=== PATIENT | male | born 1975 | race Caucasian/White ===

== ENCOUNTER 2018-03-01 23:05 | Emergency (ER) | payer SELFPAY ==
[2018-03-01 23:30] VITALS: BP 137/91
[2018-03-02] MEDS: BENZONATATE 100 MG CAPSULE PO ONE
--- NOTE | 2018-03-02 00:04 | ED Physician Documentation ---
Upper Respiratory Symptoms - HISTORIAN Historian: patient - HPI Stated Complaint: cough/cold Chief Complaint: Cough/ Upper Respiratory Additional Information: cough prod clealr mucoid x 1 month Onset: days ago (30) Duration: intermittent episodes Context: recent foreign travel. denies: insect bite(s), recent chemotherapy Severity: mild, moderate Associated Symptoms: runny nose, productive cough. denies: fever, chills Worsened by Deep Breath: Yes Further Comments: yes - ROS CONST/EYES: denies: weakness CVS/RESP: none. denies: chest pain, shortness of breath LYMPH: denies: leg swelling, rash, swollen glands GI/: none NEURO/PSYCH: denies: fainting, dizziness, confusion MS/SKIN: denies: joint pain - PAST HX Lung Disease: none PE Risk Factors: none Other History: denies: cancer chemo, cancer radiation tx, cardiac disease Surgeries/Procedures: none Allergies/Adverse Reactions: Allergies Allergy/AdvReac Type Severity Reaction Status Date / Time No Known Drug Allergies Allergy Verified 03/01/18 23:30 Home Medications: Ambulatory Orders Medication Instructions Recorded Buspirone HCl [Buspar] 15 mg PO BID 03/01/18 Codeine Phosphate/Guaifenesin 10 ml PO Q6H PRN #1 liquid 03/01/18 [Robitussin AC] Divalproex Sodium [Divalproex 500 mg PO DAILY 03/01/18 Sodium ER] Hydroxyzine HCl [Atarax] 25 mg PO DAILY 03/01/18 - SOCIAL HX Smoking History: cigarettes, greater than 1 pack/day Alcohol Use: none Drug Use: none - FAMILY HX Family History: no significant history - VITAL SIGNS Vital Signs: Vital Signs Temp Pulse Resp BP Pulse Ox 98.4 F 97 H 18 137/91 97 03/01/18 23:22 03/01/18 23:22 03/01/18 23:22 03/01/18 23:22 03/01/18 23:22 - REVIEWED ASSESSMENTS Nursing Assessment Reviewed: Yes Vitals Reviewed: Yes ED Results Lab/Radiology - Orders Orders: ED Orders Category Date Time Status Benzonatate [Tessalon] Med 03/01/18 23:55 Discontinued 100 mg PO NOW ONE Upper Respiratory Symptoms - EXAM General Appearance: mild distress EENT: eyes nml inspection Neck: normal inspection, supple Respiratory: no resp. distress, breath sounds nml, speaks full sentences. No: no pain on inspiration, respiratory distress Abdomen: non-tender, no distention CVS: reg rate & rhythm, heart sounds normal Skin: color nml, no rash, warm,dry. No: cyanosis, diaphoresis, pallor, signs of IVDA, embolic Extremities: non-tender, normal range of motion Neuro/Psych: oriented x3, neuro intact, mood/affect nml Discharge Clincal Impression: cough uri Prescriptions: Codeine Phosphate/Guaifenesin [Robitussin AC] 10 ml PO Q6H PRN #1 liquid PRN Reason: Cold Symptons Referrals: Primary Doctor,No [Primary Care Provider] - 2 Days Comments: ordered robitussin ac Condition: Good Disposition: 01 HOME, SELF-CARE Decision to Admit: NO Decision Time: 00:07
== END 2018-03-02 00:03 | disposition home or self-care (01) ==
LOC: ED 23:05
DX: J06.9 Acute upper respiratory infection, unspecified (principal); R05 Cough
CPT/HCPCS: 99283; A9270-GY

== ENCOUNTER 2018-05-02 15:20 | Outpatient (CLI) | payer OTHER ==
[2018-05-02 16:25] LABS: eGFR (African) > 60; eGFR (Non-African) > 60
== END 2018-05-02 15:30 ==
LOC: LAB 15:20
PROVIDERS: ATTEND Family Medicine
DX: L29.9 Pruritus, unspecified (principal)
CPT/HCPCS: 36415; 80053

== ENCOUNTER 2018-05-16 10:19 | Emergency (ER) | payer OTHER ==
[2018-05-16 10:32] VITALS: BP 116/82
--- NOTE | 2018-05-16 10:50 | ED Physician Documentation ---
Skin Rash - HISTORIAN Historian: patient - HPI Stated Complaint: ITCHING Chief Complaint: Skin Rash Onset: days ago (2) Timing: worse Duration: worse Location: RUE, LUE, RLE, LLE, other (groin) Quality: itchy, painful Context: Food Exposure: none Context: Other Exposure: poison morro (possible), poison oak (possible). denies: bee sting, wasp sting, ant bite, spider bite, infectious illness, soap, detergent, other Further Comments: yes (42 year old male patient presents with complaint of rash on bilateral arms, bilateral feet and groin. Patient states he rash started 2 days, has become progressively worse. Has used mustard, hydrocortisone cream and vinegar on the rash with not improvment.) - ROS CONST: none CVS/RESP: none EYES/ENT: none GI/: none MS/SKIN/LYMPH: rash NEURO/PSYCH: none - PAST HX Past History: hypertension, other (asthma) Allergies/Adverse Reactions: Allergies Allergy/AdvReac Type Severity Reaction Status Date / Time No Known Drug Allergies Allergy Verified 05/16/18 10:33 Home Medications: Ambulatory Orders Medication Instructions Recorded Cephalexin [Keflex] 500 mg PO QID #28 capsule 05/16/18 Valacyclovir HCl [Valacyclovir] 1,000 mg PO D 05/16/18 - SOCIAL HX Smoking History: cigarettes - FAMILY HX Family History: denies: none - VITAL SIGNS Vital Signs: Vital Signs Temp Pulse Resp BP Pulse Ox 96.7 F L 99 H 20 116/82 99 05/16/18 10:54 05/16/18 10:54 05/16/18 10:54 05/16/18 10:54 05/16/18 10:54 - REVIEWED ASSESSMENTS Nursing Assessment Reviewed: Yes Vitals Reviewed: Yes Progress - Progress Progress: Patient denies any new soaps or lotions, denies chemical exposure, denies any new foods. Medicated with depo medrol while in the Er. ED Results Lab/Radiology - Orders Orders: ED Orders Category Date Time Status Loratadine [Claritin] Med 05/16/18 10:47 Discontinued 10 mg PO NOW ONE methylPREDNISolone ACETATE [Depo-Medrol] Med 05/16/18 10:47 Discontinued 80 mg IM NOW ONE Skin Rash Physical Exam - EXAM General Appearance: mild distress Skin: warm,dry, skin rash Location: trunk, extremities (bilateral arms and bilateral feet) Character: asymmetric, macular, fine, urticarial, erythematous. No: vesicular Symptoms: tenderness, swelling (bilateral hands) Extremities: nml ROM, edema EENT: eyes nml inspection, lips nml, gums nml, pharynx nml Respiratory: no resp distress, chest non-tender, breath sounds normal CVS: reg. rate & rhythm, heart sounds nml Abdomen: non-tender, no organomegaly, nml bowel sounds, no distention Neuro/Psych: oriented x3, CN's nml as tested, motor nml, sensation nml, mood/ affect nml Discharge Clincal Impression: Urticaria Prescriptions: Cephalexin [Keflex] 500 mg PO QID #28 capsule Referrals: Primary Doctor,No [Primary Care Provider] - 2 Days Additional Instructions: securities supervisor your prescription and start it today. Continue Benadryl 25-50mg by mouth every 6 hours until symptoms resolve Take either Claritan, Allergra, or Zyrtec daily until symptoms resolve. See your primary doctor or return to the ER if you have increase shortness of breath or difficulty breathing. Hives can be treated at home with the above Benadryl regimen. Condition: Stable Disposition: HOME, SELF-CARE Decision to Admit: NO Decision Time: 10:50
[2018-05-16] MEDS: LORATADINE 10 MG TABLET PO ONE (10:53)
[2018-05-16] MEDS: methylPREDNISolone ACETATE 80 MG/ML VIAL IM ONE (10:53)
== END 2018-05-16 10:54 | disposition home or self-care (01) ==
LOC: ED 10:19
DX: L50.9 Urticaria, unspecified (principal)
CPT/HCPCS: 96372; 99283; J1040

== ENCOUNTER 2018-06-30 21:39 | Emergency (ER) | payer OTHER ==
[2018-06-30] MEDS ORDERED: ONDANSETRON HCL/PF 4 MG/ 2ML VIAL IVP PRN (22:06)
--- NOTE | 2018-06-30 22:10 | ED Physician Documentation ---
GI Bleed - HISTORIAN Historian: patient - HPI Stated Complaint: Diarrhea and vomiting. Chief Complaint: Nausea,Vomiting,Diarrhea Onset: days ago Timing: gradual onset Severity: severe Further Comments: yes (Patient woke up last night with vomiting and diarrhea. Today has had about 4 episodes of vomiting and 15 of diarrhea. Many member of his family and co-workers have similiar symtpoms. Feels light headed when stands. Able to keep fluids down. Tonight ate ribs and beans for dinner. About an hour later had more diarrhea.) - Associated Symptoms Description of Stools: denies: dark stools Abdominal Pain: none - ROS CONST: denies: fever SKIN/LYMPH: denies: leg swelling - PAST HX Past History: other (PTSD and bipolar - no meds at this time) Surgeries/Procedures: none Allergies/Adverse Reactions: Allergies Allergy/AdvReac Type Severity Reaction Status Date / Time No Known Drug Allergies Allergy Verified 06/30/18 22:59 Home Medications: Ambulatory Orders Medication Instructions Recorded NK 06/30/18 - SOCIAL HX Smoking History: greater than 1 pack/day Alcohol Use: none Drug Use: none - FAMILY HX Family History: other (DM) - VITAL SIGNS Vital Signs: Vital Signs Temp Pulse Resp BP Pulse Ox 98.5 F 122 H 18 124/90 96 06/30/18 21:39 06/30/18 21:39 06/30/18 21:39 06/30/18 21:39 06/30/18 21:39 - REVIEWED ASSESSMENTS Nursing Assessment Reviewed: Yes Vitals Reviewed: Yes Progress - Progress Progress: 1 liter of NS + 20 oz of oral gatorade - patient feels much better. Pulse in the 80's. ED Results Lab/Radiology - Lab Results Lab Results: Lab Results 06/30/18 22:08 Sodium 137 mmol/L mmol/L (136-145) Potassium 3.6 mmol/L mmol/L (3.5-5.1) Chloride 109 mmol/L H mmol/L (98-107) Carbon Dioxide 25 mmol/L mmol/L (22-30) BUN 11 mg/dL mg/dL (9-20) Creatinine 0.80 mg/dL mg/dL (0.66-1.25) Estimated Creat Clear 168 Est GFR ( Amer) > 60 (60 - ) Est GFR (Non-Af Amer) > 60 (60 - ) Glucose 118 mg/dL H mg/dL (74-106) Calcium 9.0 mg/dL mg/dL (8.4-10.2) Total Bilirubin 0.2 mg/dL mg/dL (0.2-1.3) AST 34 U/L U/L (15-46) ALT 57 U/L U/L (13-69) Alkaline Phosphatase 64 U/L U/L (38-126) Total Protein 7.5 g/dL g/dL (6.3-8.2) Albumin 4.1 g/dL g/dL (3.5-5.0) - Orders Orders: ED Orders Category Date Time Status Place IV Lock 1T Care 06/30/18 22:[address] IV Lock 1T Care 06/30/18 22:05 Active CBC REF Routine Lab 06/30/18 22:08 Received CMP [CMP] Routine Lab 06/30/18 22:08 Completed 0.9 % Sodium Chloride [Normal Saline] 1,000 ml Med 06/30/18 22:30 Ordered IV Q1 0.9 % Sodium Chloride [Normal Saline] 1,000 ml Med 06/30/18 22:30 Discontinued IV Q10H Ondansetron HCl Rapdis [Zofran Odt] Med 06/30/18 22:16 Discontinued 4 mg PO NOW ONE Ondansetron HCl/Pf [Zofran 4 mg/2 ml] Med 06/30/18 22:06 Discontinued 4 mg IVP Q6H PRN Abdominal Pain Physical Exam - Physical Exam General Appearance: no acute distress, alert EENT: eye inspection normal, ENT inspection normal, dry mucous membranes NECK: normal inspection RESPIRATORY: no resp distress, breath sounds normal CVS: reg rate & rhythm, heart sounds normal ABDOMEN: soft, no organomegaly, normal bowel sounds, no distension, non-tender NEURO: oriented X3 Vital Signs: Vital Signs Temp Pulse Resp BP Pulse Ox 98.5 F 122 H 18 124/90 96 06/30/18 21:39 06/30/18 21:39 06/30/18 21:39 06/30/18 21:39 06/30/18 21:39 Discharge Clincal Impression: Viral gastroenteritis Referrals: Primary Doctor,No [Primary Care Provider] - 2 Days Additional Instructions: BRAT diet x 48 hours. No work tomorrow. Push fluids. Condition: Good Disposition: 01 HOME, SELF-CARE Decision to Admit: NO Decision Time: 23:24
[2018-06-30] MEDS ORDERED: ONDANSETRON HCL 4 MG TAB.RAPDIS PO ONE (22:16)
[2018-06-30] MEDS ORDERED: 0.9 % SODIUM CHLORIDE 1,000 ML IV ONE (22:17)
[2018-06-30 22:23] LABS: eGFR (Non-African) > 60
[2018-06-30] MEDS ORDERED: 0.9 % SODIUM CHLORIDE 1,000 ML IV SCH ×2 (22:30)
[2018-06-30 23:50] VITALS: BP 124/60
== END 2018-06-30 23:25 | disposition home or self-care (01) ==
LOC: ED 21:39
DX: A08.4 Viral intestinal infection, unspecified (principal)
CPT/HCPCS: 80053; 85025; A9270; J7030; 96365; 99283; S1016

== ENCOUNTER 2018-07-18 06:36 | Emergency (ER) | payer OTHER ==
--- NOTE | 2018-07-18 07:04 | ED Physician Documentation ---
General Adult - HPI Stated Complaint: Insect in left ear Chief Complaint: General Adult Onset: hours Timing: still present Severity: moderate Further Comments: yes (Pt is a 43 yo male with c/o a bug in his L ear. He thinks it has been there for about 4 hours. Pt flushed his ear with saline at home.) - ROS CONST: no problems EYES/ENT: other (? foreign body L ear) CVS/RESP: none GI/: none MS/SKIN/LYMPH: none - PAST HX Past History: none Allergies/Adverse Reactions: Allergies Allergy/AdvReac Type Severity Reaction Status Date / Time No Known Drug Allergies Allergy Verified 07/18/18 06:52 Home Medications: Ambulatory Orders Medication Instructions Recorded NK 06/30/18 - SOCIAL HX Smoking History: cigarettes - FAMILY HX Family History: No - VITAL SIGNS Vital Signs: Vital Signs Temp Pulse Resp BP Pulse Ox 98.6 F 92 H 18 120/86 98 07/18/18 06:40 07/18/18 06:40 07/18/18 06:40 07/18/18 06:40 07/18/18 06:40 - REVIEWED ASSESSMENTS Nursing Assessment Reviewed: Yes Vitals Reviewed: Yes Progress - Progress Progress: debrox and flush, no fb found no fb seen General Adult Physical Exam - PHYSICAL EXAM GENERAL APPEARANCE: mild distress EENT: ENT inspection normal, TM's nml NECK: normal inspection, supple RESPIRATORY: no resp distress, chest non-tender CVS: reg rate & rhythm, heart sounds normal BACK: normal inspection SKIN: warm/dry, normal color EXTREMITIES: non-tender, normal range of motion, no evidence of injury NEURO: oriented X3, motor nml, sensation nml Discharge Clincal Impression: c/o fb L ear Referrals: Primary Doctor,No [Primary Care Provider] - Condition: Good Disposition: 01 HOME, SELF-CARE Decision to Admit: NO Decision Time: 07:28
[2018-07-18] MEDS: CARBAMIDE PEROXIDE OTIC SUSP OT ONE (07:16)
[2018-07-18 07:52] VITALS: BP 124/60
== END 2018-07-18 07:35 | disposition home or self-care (01) ==
LOC: ED 06:36
DX: H93.92 Unspecified disorder of left ear (principal)

== ENCOUNTER 2018-08-26 08:17 | Emergency (ER) | payer OTHER ==
--- NOTE | 2018-08-26 08:37 | ED Physician Documentation ---
General Adult - HISTORIAN Historian: patient - HPI Stated Complaint: cough Chief Complaint: General Adult Additional Information: Cough and congestion for 3 weeks. No fever. Had to sleep sitting upright last night to decrease cough frequency. [facility]2 [facility]. Given an unknown IV medication that made his kidneys hurt when he got home. 1 PPD smoker since 8 years old. Took mucinex in the past but none in the last few days. Had whooping cough in 2013. No other modifying factors or associated events. - ROS CONST: denies: fever - PAST HX Past History: other (whooping cough) Allergies/Adverse Reactions: Allergies Allergy/AdvReac Type Severity Reaction Status Date / Time No Known Drug Allergies Allergy Verified 08/26/18 08:31 Home Medications: Ambulatory Orders Medication Instructions Recorded Azithromycin [Zithromax] 250 mg PO DAILY #6 tablet 08/26/18 predniSONE [Deltasone] 20 mg PO QD #7 tablet 08/26/18 - SOCIAL HX Smoking History: cigarettes (1 PPD x 35 years) - FAMILY HX Family History: No (no signif) - VITAL SIGNS Vital Signs: Vital Signs Temp Pulse Resp BP Pulse Ox 97.9 F 86 16 122/82 96 08/26/18 08:27 08/26/18 08:27 08/26/18 08:27 08/26/18 08:27 08/26/18 08:27 - REVIEWED ASSESSMENTS Nursing Assessment Reviewed: Yes Vitals Reviewed: Yes Progress - Progress Progress: Report Submission Date: Aug 26, 2018 8:45:12 AM RIB CHOPPER Patient Study Name: JOEL BOWIE Date: Aug 26, 2018 8:25:21 AM RIB CHOPPER Modality Type: DX Gender: M Description: CHEST : 71 Institution: [facility] Physician: NICOLAS MONCADA - Examination: PA and lateral chest. History: Evaluate lung preciado. Cough x3 weeks, smoker x30 years (Hx) Comparison exam: None provided. Findings: PA and lateral views of the chest demonstrates a normal cardiac and mediastinal silhouette. No focal infiltrate. No blunting of the costophrenic margins. Osseous structures are appropriate for age. Impression: No acute pulmonary process. Electronically signed on Aug 26, 2018 8:45:12 AM RIB CHOPPER by: Marshall Erickson ED Results Lab/Radiology - Orders Orders: ED Orders Category Date Time Status CHEST 2VIEW [RAD] Stat Exams 08/26/18 Ordered General Adult Physical Exam - PHYSICAL EXAM GENERAL APPEARANCE: no distress EENT: eye inspection normal, ENT inspection normal, pharynx normal, other (mild tenderness with palpation facial sinus areas) NECK: normal inspection, supple. No: lymphadenopathy RESPIRATORY: no resp distress, breath sounds normal, other (occasional wet c ough) CVS: reg rate & rhythm, heart sounds normal BACK: normal inspection SKIN: warm/dry, normal color EXTREMITIES: normal range of motion (gait and stance) NEURO: CN's nml as tested, motor nml, sensation nml, cognition normal Discharge Clincal Impression: Sinusitis Qualifiers: Sinusitis location: unspecified location Chronicity: chronic Qualified Code(s): J32.9 - Chronic sinusitis, unspecified Referrals: Primary Doctor,No [Primary Care Provider] - 2 Days Condition: Good Disposition: 01 HOME, SELF-CARE Decision to Admit: NO Decision Time: 08:58
[2018-08-26 08:42] VITALS: BP 122/82
--- NOTE | 2018-08-26 08:47 | Diagnostic Imaging Report ---
NICOLAS MONCADA [facility] [address] [facility] [address] [place] [address]. [id number] Report Submission Date: Aug 26, 2018 8:45:12 AM DRAMATIC TEACHER Patient Study Name: JOEL BOWIE Date: Aug 26, 2018 8:25:21 AM DRAMATIC TEACHER Modality Type: DX Gender: M Description: CHEST : 71 Institution: [facility] Physician: NICOLAS MONCADA Examination: PA and lateral chest. History: Evaluate lung preciado. Cough x3 weeks, smoker x30 years (Hx) Comparison exam: None provided. Findings: PA and lateral views of the chest demonstrates a normal cardiac and mediastinal silhouette. No focal infiltrate. No blunting of the costophrenic margins. Osseous structures are appropriate for age. Impression: No acute pulmonary process. Electronically signed on Aug 26, 2018 8:45:12 AM DRAMATIC TEACHER by: Marshall HERCULES
== END 2018-08-26 09:04 | disposition home or self-care (01) ==
LOC: ED 08:17
DX: J32.9 Chronic sinusitis, unspecified (principal); R05 Cough; F17.200 Nicotine dependence, unspecified, uncomplicated
CPT/HCPCS: 71046; 99283

== ENCOUNTER 2018-09-10 06:50 | Emergency (ER) | payer OTHER ==
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
--- NOTE | 2018-09-10 08:16 | Diagnostic Imaging Report ---
BOSTON LONDON (COLORIST DYER) - ER [facility] [address] [facility] [address] Report Submission Date: Sep 10, 2018 7:38:51 AM FEED INSPECTION SUPERVISOR Patient Study Name: JOEL BOWIE Date: Sep 10, 2018 7:11:26 AM FEED INSPECTION SUPERVISOR Modality Type: DX Gender: M Description: LOWER EXTREMITY : 71 Institution: [facility] Physician: BOSTON LONDON (COLORIST DYER) - ER Examination: Plain film left tibia/fibula History: FALL YESTERDAY, RIGHT LOWER LEG PAIN. (Hx) Comparison exams: None available Findings: 4 views of the right tibia fibula demonstrates normal cortical margins. No evidence for fracture line. Inferior calcaneal spur. No soft tissue abnormality. Impression: No acute osseous abnormality. Electronically signed on Sep 10, 2018 7:38:51 AM FEED INSPECTION SUPERVISOR by: Marshall HERCULES
--- NOTE | 2018-09-10 08:17 | Diagnostic Imaging Report ---
BOSTON LONDON (PUBLIC SAFETY DIRECTOR) - ER [facility] [address] [facility] [address] [place], [place]. [address] Report Submission Date: Sep 10, 2018 7:43:55 AM ELECTRIC MOTOR CONTROLS ASSEMBLER Patient Study Name: JOEL BOWIE Date: Sep 10, 2018 7:14:43 AM ELECTRIC MOTOR CONTROLS ASSEMBLER Modality Type: CT Gender: M Description: CT BRAIN W/O CONTRAST : 71 Institution: [facility] Physician: BOSTON LONDON (LIANE) - ER Examination: CT head without contrast History: FALL YESTERDAY, DIZZINESS AND HEADACHE. (Hx) Comparison exam: None available Technique: Noncontrast head CT protocol. Findings: Ventricles and sulci are appropriate for patient age. Cerebrocerebellar parenchyma demonstrates normal attenuation. No evidence for parenchymal hemorrhage. No evidence for mass or mass effect. No midline shift. No extra axial fluid collections. Significant subcutaneous air anterior to the right maxillary sinus extending from the infraorbital region inferiorly. Cortical disruption involving the anterior/inferior margin of the right maxillary sinus. Partial visualization of the remaining paranasal sinuses, mastoid air cells, orbits, skull and scalp without gross irregularity. Streak artifact from dental hardware. Impression: No acute intra parenchymal process. No hemorrhage. Right anterior soft tissue subcutaneous air/injury. Fracture of the anterior/inferior margin of the right maxillary sinus. Recommend obtaining dedicated CT maxillofacial bone to better evaluate. Electronically signed on Sep 10, 2018 7:43:55 AM ELECTRIC MOTOR CONTROLS ASSEMBLER by: Marshall HERCULES
[2018-09-10 08:24] VITALS: BP 139/90
== END 2018-09-10 08:17 | disposition home or self-care (01) ==
LOC: ED 06:50
DX: S06.0X0A Concussion without loss of consciousness, initial encounter (principal); S02.40CA Maxillary fracture, right side, initial encounter for closed fracture; V68.4XXA Person boarding or alighting a heavy transport vehicle injured in noncollision transport accident, initial encounter; Y93.89 Activity, other specified; Y92.812 Truck as the place of occurrence of the external cause; Y99.0 Civilian activity done for income or pay
CPT/HCPCS: 70450; 73590; 99283; 99284

== ENCOUNTER 2018-10-01 18:59 | Emergency (ER) | payer OTHER ==
[2018-10-01] MEDS ORDERED: IPRATROPIUM/ALBUTEROL SULFATE 3 ML AMPUL.NEB NEB ONE (19:25)
--- NOTE | 2018-10-01 19:54 | ED Physician Documentation ---
Upper Respiratory Symptoms - HISTORIAN Historian: patient - HPI Stated Complaint: shortness of breath Chief Complaint: Upper Respiratory Symptoms Additional Information: Patient presents with a 4 day history of cough, runny nose, shortness of breath. Patient has COPD and still smokes 1/2 pack per day. He denies fever, chills or night sweats. Sputum production is white. Onset: days ago (4) Duration: intermittent episodes Context: denies: recent foreign travel Severity: mild Associated Symptoms: chills, sweating, runny nose, sinus drainage, productive cough (white sputum production). denies: fever - ROS CONST/EYES: denies: weakness - PAST HX Lung Disease: COPD Allergies/Adverse Reactions: Allergies Allergy/AdvReac Type Severity Reaction Status Date / Time No Known Drug Allergies Allergy Verified 10/01/18 19:22 Home Medications: Ambulatory Orders Medication Instructions Recorded Albuterol Sulfate [Proair 1 INH PRN PRN 10/01/18 Respiclick] Azithromycin 250 mg PO DIRECTED #6 tablet 10/01/18 - SOCIAL HX Smoking History: cigarettes, greater than 1 pack/day Alcohol Use: none Drug Use: none - FAMILY HX Family History: none - VITAL SIGNS Vital Signs: Vital Signs Temp Pulse Resp BP Pulse Ox 96.8 F L 104 H 18 139/95 99 10/01/18 19:02 10/01/18 19:02 10/01/18 19:02 10/01/18 19:02 10/01/18 19:02 - REVIEWED ASSESSMENTS Nursing Assessment Reviewed: Yes Vitals Reviewed: Yes ED Results Lab/Radiology - Radiology Radiology Impressions: Chest PA and lateral views Clinical history: Cough Normal heart shadow and mediastinum, lungs are clear without acute infiltrate or pleural effusion. No pneumothorax. Normal bony thorax. Impression: No active pulmonary pathology Electronically signed on Oct 01, 2018 8:28:25 PM INSPECTOR SCREEN PRINTING by: Néstor Jasso - Orders Orders: ED Orders Category Date Time Status CHEST 2VIEW [RAD] Stat Exams 10/01/18 Ordered CBC/PLATELET/DIFF Routine Lab 10/01/18 19:37 Received CMP Routine Lab 10/01/18 19:37 Received Ipratropium/Albuterol Sulfate [Duoneb] Med 10/01/18 19:25 Discontinued 3 ml NEB NOW ONE Upper Respiratory Symptoms - EXAM General Appearance: alert EENT: PERRL Neck: supple Respiratory: no resp. distress, wheezes (scattered wheezing bilaterally) Abdomen: non-tender CVS: reg rate & rhythm, heart sounds normal Skin: warm,dry Extremities: non-tender Neuro/Psych: oriented x3 Discharge Clincal Impression: Upper respiratory infection, acute Prescriptions: Azithromycin 250 mg PO DIRECTED #6 tablet Referrals: Primary Doctor,No [Primary Care Provider] - 2 Days Additional Instructions: 1. Tylenol and/or Ibuprofen as needed for fever or pain. You may take these medications together at the same time for better pain control. 2. Add a daily antihistamine such as Claritin, Zyrtec, Xyxal, Allergra. Avoid taking the D version of these medications as they contain sudafed and will increase your blood pressure 3.Take Mucinex or Robutussin (both contain the same ingredient) to help with mucous thinning allowing you to clear your mucous easier. While taking these medications you must drink at least 64 ounces of water daily. 4.Use a cool mist humidifier with sleep 5.Follow up with PCP within 3 days 6. Return to the ED with fever >102.0, difficulty breathing, chest pain or any new or worsening symptoms Condition: Stable Decision to Admit: NO Date of Decison to Admit: 10/01/18 Decision Time: 20:35
[2018-10-01] MEDS ORDERED: methylPREDNISolone SOD SUCC 125 MG/2 ML VIAL IVP ONE (20:25)
[2018-10-01] MEDS ORDERED: methylPREDNISolone SOD SUCC 125 MG/2 ML VIAL IM ONE (20:37)
[2018-10-01 20:52] VITALS: BP 105/80
--- NOTE | 2018-10-02 05:06 | Diagnostic Imaging Report ---
VERN GRAVES [facility] [address] [facility] [address] [place] [address]. [id number] Report Submission Date: Oct 01, 2018 8:28:25 PM SENIOR COMPENSATION CONSULTANT Patient Study Name: JOEL BOWIE Date: Oct 01, 2018 8:02:21 PM SENIOR COMPENSATION CONSULTANT Modality Type: DX Gender: M Description: CHEST : 71 Institution: [facility] Physician: VERN GRAVES Chest PA and lateral views Clinical history: Cough Normal heart shadow and mediastinum, lungs are clear without acute infiltrate or pleural effusion. No pneumothorax. Normal bony thorax. Impression: No active pulmonary pathology Electronically signed on Oct 01, 2018 8:28:25 PM SENIOR COMPENSATION CONSULTANT by: Néstor HERCULES
[2018-10-02 06:57] LABS: MEAN CORPUSCULAR HEMOGLOBIN 29.6 pg (28.0-34.0); eGFR (Non-African) > 60
[2018-10-02 06:58] LABS: BASOPHILS % 0.6 (0.0-1.5); EOSINOPHILS % 3.3 % (0.0-6.8); MONOCYTES % 7.6 % (0.0-11.0); NEUTROPHILS # 5.2 # k/uL (1.4-7.7)
== END 2018-10-01 20:56 ==
LOC: ED 18:59
DX: J06.9 Acute upper respiratory infection, unspecified (principal); Z72.0 Tobacco use
CPT/HCPCS: 36415; 71046; 80053; 85025; 94640; 96372; 99283; 99284; J2930

== ENCOUNTER 2018-10-09 03:35 | Emergency (ER) | payer OTHER ==
--- NOTE | 2018-10-09 04:57 | ED Physician Documentation ---
General Adult - HISTORIAN Historian: patient - HPI Stated Complaint: Difficulty breathing Chief Complaint: General Adult Additional Information: Intro self as [employer]. pt presents to the ED via POV c/o coughing episode resulting in dyspnea. Pt was treated previously for a URI with azithromycin. pt reports he did not improve. After reassurance pt RR decreased. pt eupneic. occasional cough. Oxygen sat 98% no distress. pt denies current chest pain, syncope/near syncope, headache, dizziness, visual disturbances, n/v/d, fever/chills, rash, sick contacts, dysuria, trauma. melena or hematochezia, bleeding or easy bruising, change in bowel or bladder function, no recent weight loss/gain, anxiety or depression. ROS Negative unless otherwise specified. - ROS CONST: recent illness EYES/ENT: nasal drainage, nasal congestion. denies: problems with vision, sore throat CVS/RESP: shortness of breath, cough. denies: chest pain GI/: denies: abdominal pain, problems urinating, vomiting, nausea, diarrhea, black stools MS/SKIN/LYMPH: none. denies: rash NEURO/PSYCH: anxiety. denies: headache, fainting, dizziness, tingling, numbness, difficulty walking, difficulty with speech - PAST HX Past History: none Allergies/Adverse Reactions: Allergies Allergy/AdvReac Type Severity Reaction Status Date / Time No Known Drug Allergies Allergy Verified 10/09/18 03:53 Home Medications: Ambulatory Orders Medication Instructions Recorded Albuterol Sulfate [Proair 1 puff INH PRN PRN 10/01/18 Respiclick] - SOCIAL HX Smoking History: greater than 1 pack/day - FAMILY HX Family History: Yes - VITAL SIGNS Vital Signs: Vital Signs Temp Pulse Resp BP Pulse Ox 98.2 F 88 24 150/99 100 10/09/18 03:36 10/09/18 03:36 10/09/18 03:36 10/09/18 03:36 10/09/18 03:36 - REVIEWED ASSESSMENTS Nursing Assessment Reviewed: Yes Vitals Reviewed: Yes ED Results Lab/Radiology - Orders Orders: ED Orders Category Date Time Status Place IV Lock 1T Care 10/09/18 04:34 Active CHEST 1VIEW [RAD] Stat Exams 10/09/18 Taken CBC/PLATELET/DIFF Routine Lab 10/09/18 04:10 Received CMP [CMP] Stat Lab 10/09/18 03:54 Received General Adult Physical Exam - PHYSICAL EXAM GENERAL APPEARANCE: no distress (anxiety with increased RR) EENT: eye inspection normal, ENT inspection normal, pharynx normal, no signs of dehydration, JAKOB, no nystagmus, TM's nml NECK: normal inspection, thyroid normal RESPIRATORY: no resp distress, chest non-tender, breath sounds normal, other (hyperventilation) CVS: reg rate & rhythm, heart sounds normal, equal pulses, no murmur, no gallop, PMI nml, no JVD, no friction rub, 24 ABDOMEN: soft, no organomegaly, normal bowel sounds, no abdominal bruit, no distension BACK: normal inspection, no CVA tenderness SKIN: normal color, warm/dry, NR, INT, PAL, DR EXTREMITIES: non-tender, normal range of motion, no evidence of injury, no edema, J, [employer] NEURO: oriented X3, motor nml, sensation nml, mood/affect nml Discharge Clincal Impression: Upper respiratory infection, acute, Anxiety hyperventilation Referrals: Primary Doctor,No [Primary Care Provider] - 2 Days Additional Instructions: follow up with primary care provider next week. Rest. Stop Smoking. this causes a chronic cough and infection Increase fluids like gatoraid or other electrolyte replacement. May use over the counter cough syrup use over the counter decongestant like sudafed Ibuprofen 600 mg every 6 hours for fever/inflammation Tylenol 650 mg every 4-6 hours for pain/fever seek medical care immediately if difficult to wake, difficulty breathing, feeling faint or fainting, increased rash, chest pain, shortness of breath, or fever not controlled by t ylenol/motrin or any concern. follow up with primary care next week or before if not improving as expected. PLEASE UNDERSTAND THAT THIS IS AN EMERGENCY EVALUATION FOR YOUR COMPLAINT AND BY NATURE IS LIMITED AND NOT A SUBSTITUTE FOR ONGOING MEDICAL CARE. EVEN THOUGH TEST RESULTS AND TREATMENT PLAN WERE EXPLAINED THERE MAY BE A NEED FOR ADDITIONAL TESTING TO FULLY DETERMINE THE EXTENT OF YOUR ILLNESS/INJURY/OR CONCERN SO YOU SHOULD CONTACT AND OR ESTABLISH WITH A PRIMARY CARE PROVIDER (OR REFERRAL DOCTOR IF APPLICABLE) FOR AN APPOINTMENT SOON POSSIBLE Condition: Good Disposition: 01 HOME, SELF-CARE Decision to Admit: NO Date of Decison to Admit: 10/09/18 Decision Time: 04:57
[2018-10-09] MEDS ORDERED: ALBUTEROL SULFATE 2.5 MG/3 ML AMPUL.NEB NEB STA (05:07)
[2018-10-09 05:46] VITALS: BP 148/76
[2018-10-09 06:52] LABS: BASOPHILS % 0.7 (0.0-1.5); MEAN CORPUSCULAR HEMOGLOBIN 29.1 pg (28.0-34.0); MONOCYTES % 7.2 % (0.0-11.0); NEUTROPHILS # 6.8 # k/uL (1.4-7.7)
[2018-10-09 06:54] LABS: eGFR (Non-African) > 60
--- NOTE | 2018-10-09 12:54 | Diagnostic Imaging Report ---
JUNIOR FRAGOSO [facility] [address] [facility] [address] [place] [address]. [id number] Report Submission Date: Oct 09, 2018 4:08:24 AM REFERRAL RN Patient Study Name: JOEL BOWIE Date: Oct 09, 2018 3:42:59 AM REFERRAL RN Modality Type: DX Gender: M Description: CHEST : 71 Institution: [facility] Physician: JUNIOR FRAGOSO Portable chest Clinical history: Difficulty breathing. Chest pain and cough. Findings: Examination of the chest single portable AP view with comparison to examination of 10/01/2018 demonstrates the lungs to be hypoventilated with crowding of the vascular markings. There is no coalescent infiltrate. Cardiovascular and mediastinal silhouettes are stable. Impression: 1. Hypoventilation with crowding of the vascular markings. Electronically signed on Oct 09, 2018 4:08:24 AM REFERRAL RN by: Florentin HERCULES
== END 2018-10-09 05:20 | disposition home or self-care (01) ==
LOC: ED 03:35
DX: J06.9 Acute upper respiratory infection, unspecified (principal); F41.9 Anxiety disorder, unspecified; R06.4 Hyperventilation; Z72.0 Tobacco use
CPT/HCPCS: 36415; 71045; 80053; 85025; 94640; 99282; 99284; S1016

== ENCOUNTER 2019-06-15 06:24 | Emergency (ER) | payer OTHER ==
--- NOTE | 2019-06-15 06:44 | ED Physician Documentation ---
Abscess - HISTORIAN Historian: patient - HPI Stated Complaint: sore spot Chief Complaint: Abscess Additional Information: Patient is a 44 year old male who presents with some beginning redness/erythema to the pubis region. States that it started 4 days ago. Denies any fever, chills, nausea or vomiting. He does shave the pubis area. Discussed warm, moist heat. Onset: days ago Timing: still present Duration: persistent since Location: other (pubis pad) Quality: none Identified Cause?: No Where: home Context: Medication Exposure: none Context: Food Exposure: none Further Comments: no - ROS CONST: none CVS/RESP: none EYES/ENT: none GI/: none MS/SKIN/LYMPH: none NEURO/PSYCH: none - PAST HX Past History: other (depression, anxiety) Immunizations: UTD Allergies/Adverse Reactions: Allergies Allergy/AdvReac Type Severity Reaction Status Date / Time No Known Drug Allergies Allergy Verified 06/15/19 06:37 Home Medications: Ambulatory Orders Medication Instructions Recorded Cephalexin [Keflex] 500 mg PO Q6H #40 capsule 06/15/19 - SOCIAL HX Smoking History: cigarettes Alcohol Use: none Drug Use: none - FAMILY HX Family History: none - VITAL SIGNS Vital Signs: Vital Signs Temp Pulse Resp BP Pulse Ox 98.1 F 88 19 141/89 98 06/15/19 06:38 06/15/19 06:38 06/15/19 06:38 06/15/19 06:38 06/15/19 06:38 - REVIEWED ASSESSMENTS Nursing Assessment Reviewed: Yes Vitals Reviewed: Yes Abscess Physical Exam - EXAM General Appearance: no acute distress, alert Skin: warm,dry, skin rash (redness/erythema to pubis region) Location: other (pubis region) Character: erythematous Symptoms: warmth, tenderness, swelling Extremities: non-tender EENT: eyes nml inspection, lips nml, gums nml, pharynx nml Respiratory: breath sounds normal CVS: heart sounds nml Abdomen: non-tender, nml bowel sounds Neuro/Psych: oriented x3, CN's nml as tested, motor nml, sensation nml, mood/affect nml Discharge Clincal Impression: Cellulitis of pubic region Prescriptions: Cephalexin [Keflex] 500 mg PO Q6H #40 capsule Referrals: Primary Doctor,No [Primary Care Provider] - 2 Days Additional Instructions: TAke Cephalexin 500mg by mouth every 6 hours until gone Warm moist heat frequently Hot baths (may draw infection to a head) Alternate Tylenol and Ibuprofen as needed for discomfort Condition: Good Disposition: 01 HOME, SELF-CARE Decision to Admit: NO Decision Time: 06:48
[2019-06-15 06:55] VITALS: BP 139/90
== END 2019-06-15 06:55 | disposition home or self-care (01) ==
LOC: ED 06:24
DX: L03.314 Cellulitis of groin (principal)